=== PATIENT | male | born 1975 | race Asian ===

== ENCOUNTER 2022-05-17 15:29 | Emergency (ER) | payer MEDICAID ==
[~2022-05-17] VITALS: Ht 175.3 cm; Wt 38.0 kg
[2022-05-17 15:35] VITALS: BP 138/90
[2022-05-17] MEDS ORDERED: LORAZEPAM 1MG TABLET PO ONE (16:00)
[2022-05-17] MEDS ORDERED: OLANZAPINE 5MG TABLET ODT PO ONE (16:00)
== END 2022-05-17 17:57 | disposition home or self-care (01) ==
LOC: ER 15:29
DX: R42 Dizziness and giddiness (principal); E11.9 Type 2 diabetes mellitus without complications; F20.9 Schizophrenia, unspecified
CPT/HCPCS: 82962; 93005; 99283

== ENCOUNTER 2022-05-18 00:45 | Emergency (ER) | payer MEDICAID ==
[~2022-05-18] VITALS: Ht 170.2 cm; Wt 75.0 kg
[2022-05-18 00:55] VITALS: BP 152/60
== END 2022-05-18 03:18 | disposition left against medical advice (07) ==
LOC: ER 00:45
DX: Z53.21 Procedure and treatment not carried out due to patient leaving prior to being seen by health care provider (principal)

== ENCOUNTER 2022-05-18 10:46 | Emergency (ER) | payer MEDICAID ==
[~2022-05-18] VITALS: Ht 172.7 cm; Wt 59.0 kg
[2022-05-18 11:09] VITALS: BP 150/90
== END 2022-05-18 11:37 | disposition home or self-care (01) ==
LOC: ER 10:46
DX: E11.9 Type 2 diabetes mellitus without complications (principal); Z13.9 Encounter for screening, unspecified; Z86.59 Personal history of other mental and behavioral disorders
CPT/HCPCS: 82962; 99283

== ENCOUNTER 2022-05-18 23:11 | Emergency (ER) | payer MEDICAID, MEDICARE ==
[~2022-05-18] VITALS: Ht 177.8 cm; Wt 52.0 kg
[2022-05-19 03:00] VITALS: BP 122/74
== END 2022-05-19 03:00 | disposition home or self-care (01) ==
LOC: ER 23:11
DX: T73.0XXA Starvation, initial encounter (principal); X58.XXXA Exposure to other specified factors, initial encounter; Z59.00 Homelessness unspecified
CPT/HCPCS: 99281

== ENCOUNTER 2022-05-20 15:19 | Emergency (ER) | payer MEDICAID ==
[~2022-05-20] VITALS: Ht 167.6 cm; Wt 59.0 kg
[2022-05-20 15:20] VITALS: BP 122/80
[2022-05-20 18:38] LABS: HEMATOCRIT. 32.3 % (42.0-52.0); HEMOGLOBIN. 11.1 g/dL (14.0-18.0); MEAN CORPUSCULAR HEMOGLOBIN 31.4 pg (28.0-32.0); MEAN CORPUSCULAR VOLUME 91.2 fL (80.0-94.0); MEAN PLATELET VOLUME 8.5 fl (7.4-10.4); PLATELET 219 x1000/uL (130-400); RED BLOOD CELL COUNT 3.54 mill/uL (4.7-6.1); RED CELL DISTRIBUTION WIDTH 13.8 % (11.6-14.6)
[2022-05-20 18:44] LABS: CHLORIDE 104 mEq/L (98-107)
[2022-05-20 20:34] LABS: PLATELET ESTIMATE NORMAL
== END 2022-05-20 19:50 | disposition home or self-care (01) ==
LOC: ER 15:19
DX: E86.0 Dehydration (principal); E11.9 Type 2 diabetes mellitus without complications
CPT/HCPCS: 36415; 80053; 84484; 85025; 93005; 99284